=== PATIENT | male | born 1980 | race Caucasian/White ===

== ENCOUNTER 2016-05-19 10:09 | Day surgery (SDC) | payer MEDICAID ==
[2011-08-20 11:55] VITALS: BMI 32.5
[2016-05-19] MEDS ORDERED: HYDROCODONE-APA1 TAB PO (11:07)
[2016-05-19] MEDS ORDERED: KLONOPIN0.5 MG PO (11:08)
[2016-05-19] MEDS ORDERED: CYCLOBENZAPRINE10 MG PO (11:15)
[2016-05-19] MEDS ORDERED: ABILIFY10 MG PO (11:16)
[2016-05-19] MEDS ORDERED: NUVIGIL250 MG PO (11:16)
--- NOTE | 2016-05-19 11:32 | NUR ---
1125- DR. SELF SPOKE WITH PATIENT AND FAMILY ABOUT PERSUING RADIO ABLATION DUE TO THE FACT THAT THE PT HAS BEEN EXPERIENCING PAIN FOR REPORTLY 5 YEARS. PT INFORMATION COLLECTED FROM PATIENT FOR DR. SELF ANESTHESIA CONSULT COMPLETED.
--- NOTE | 2016-05-21 13:40 | CN ---
PATIENT NAME:DAVID ETIENNE MEDICAL RECORD: [id number] : 84 [facility] AD[facility] DATE: ACCOUNT: [id number] CONSULTING PHYSICIAN: BOBBY SELF MD REFERRING PHYSICIAN: TWIN KUNZ MD DATE OF CONSULTATION: 05/19/2016 Mr. Etienne was referred to the pain service by Dr. Twin Kunz for the patient's longstanding right groin pain. The patient apparently had a right inguinal hernia repair with mesh approximately 5 years ago. Since that time, the patient has developed right lower quadrant pain, which seems to be superficial along the ilioinguinal nerve area. The patient presents today for discussion of options on resolution of the patient's chronic pain. The patient is a male, 36 years of age, currently on a few medications, on Abilify, Flexeril, Klonopin, hydrocodone for his chronic pain condition. The patient relates that it can be incapacitating. The patient is requesting some type of resolution. The patient has been referred to [facility] in the past, was given IV medication and was not counseled at the pain service and was sent back to [facility]. The patient is requesting some type of alternative to oral medications for the chronic pain condition. I discussed at length the patient's condition. I felt that it was probably either scar tissue or entrapment of ilioinguinal nerve along that right inguinal area. I relayed to the patient extensively that we could do a diagnostic, but not therapeutic injection, we could do Marcaine with steroids, but with the longstanding chronicity of injury, I felt that the patient would not have any resolution. I felt that it will be more diagnostic than actually therapeutic. The patient asked for other options, other options relayed to him was radiofrequency ablation. The patient equests local physician who perhaps did that, I relayed that would be referral to Dr. Seamus Don. I felt that for resolution and therapeutic results, radiofrequency ablation with Dr. Seamus Don was appropriate. We will refer the patient onto Dr. Seamus Don for radiofrequency ablation of the ilioinguinal nerve on the right side for chronic ilioinguinal nerve entrapment. TRANSINT:[id number] Voice Confirmation ID: [id number] DOCUMENT ID: [id number] BOBBY SELF MD at 1340 CC: QUIN DON MD [id number] DICTATION DATE: 05/20/16 0831 DIRECTOR OF SPORTS PERFORMANCE: 05/20/16 1120 [facility] [place] 05/19/16 [place] [id number] [place] [address]
== END 2016-05-19 11:27 | disposition home or self-care (01) ==
LOC: D.OPS 10:09
DX: R10.31 Right lower quadrant pain (principal)

== ENCOUNTER → 2019-01-27 09:44 | Outpatient (CLI) | payer MEDICAID ==
[2011-08-20 11:55] VITALS: BMI 32.5
[~2019-01-27 09:44] MED LIST: ABILIFY10 MG PO; CYCLOBENZAPRINE10 MG PO; HYDROCODONE-APA1 TAB PO; KLONOPIN0.5 MG PO; NUVIGIL250 MG PO
== END | disposition home or self-care (01) ==
LOC: D.MRI 09:44
PROVIDERS: ATTEND Pain Medicine Interventional Pain Medicine
DX: G57.91 Unspecified mononeuropathy of right lower limb (principal); G57.81 Other specified mononeuropathies of right lower limb; M47.897 Other spondylosis, lumbosacral region; M54.5 Low back pain; M54.17 Radiculopathy, lumbosacral region; R10.30 Lower abdominal pain, unspecified; G89.4 Chronic pain syndrome; Z79.899 Other long term (current) drug therapy; Z79.891 Long term (current) use of opiate analgesic

== ENCOUNTER 2019-09-02 19:50 | Emergency (ER) | payer MEDICAID ==
[~2019-09-02] VITALS: Ht 190.5 cm; Wt 128.2 kg
[2019-09-02 19:57] VITALS: Ht 190.5 cm; Wt 128.2 kg
[2019-09-02] MEDS ORDERED: NEURONTIN800 MG PO (19:59)
[2019-09-02] MEDS ORDERED: ADIPEX-P37.5 M1 PO (19:59)
[2019-09-02 20:07] LABS: BASOPHILS 0.2 % (0-2); EOSINOPHILS 0.5 % (0-7); HEMATOCRIT 43.5 % (42.0-54.0); HEMOGLOBIN 14.4 g/dL (13.5-17.5); IMMATURE GRANULOCYTES 0.4 % (0-5); LYMPHOCYTES 13.7 % (15-50); MCH 32.8 pg (26.0-34.0); MCHC 33.1 g/dL (31.0-37.0); MCV 99.1 fL (80.0-100.0); MEAN PLATELET VOLUME 10.2 fL (7.4-10.4); MONOCYTES 5.6 % (2-11); NEUTROPHILS 79.6 % (40-80); PLATELET COUNT 228 10x3/uL (130-400); RBC 4.39 10x6/uL (4.20-6.10); RDW 12.9 % (11.5-14.5); WBC 10.2 10x3/uL (4.8-10.8)
[2019-09-02 20:14] LABS: APTT 30.5 SECONDS (22.8-39.4); CALC OSMOLALITY 283 mosm/kg (275-300); CALCIUM 10.4 mg/dL (8.5-10.1); CARBON DIOXIDE 28.6 mmol/L (21.0-32.0); CHLORIDE - SERUM 102 mmol/L (98-107); CREATININE - SERUM 1.8 mg/dL (0.6-1.3); GLUCOSE 143 mg/dL (74-106); INR 0.96 (0.85-1.17); POTASSIUM - SERUM 3.9 mmol/L (3.5-5.1); PROTIME 12.7 SECONDS (11.6-15.0); SODIUM 139 mmol/L (136-145); UREA NITROGEN 23 mg/dL (7-18); eGFR NON AFRICAN AMERICAN 45 mL/min (90-120)
[2019-09-02 20:30] LABS: ALBUMIN 4.7 g/dL (3.4-5.0); ALKALINE PHOSPHATASE 65 U/L (30-120); ALT (SGPT) 36 U/L (10-68); AMYLASE - SERUM 42 U/L (25-115); BILIRUBIN - TOTAL 0.32 mg/dL (0.2-1.3); CKMB 2.6 U/L (0.0-3.6); CREATINE KINASE 275 UL (21-232); LIPASE 54 U/L (73-393); MAGNESIUM - SERUM 2.4 mg/dL (1.8-2.4); PROTEIN - SERUM 8.2 g/dL (6.4-8.2)
[2019-09-02 20:31] LABS: TROPONIN-I < 0.017 ng/mL (0.000-0.060)
[2019-09-02 21:22] LABS: UDS - BARB NEGATIVE QUAL (NEGATIVE); UDS - BENZO NEGATIVE QUAL (NEGATIVE); UDS - COCAINE NEGATIVE QUAL (NEGATIVE); UDS - OPIATE POSITIVE QUAL (NEGATIVE); UDS - PCP NEGATIVE QUAL (NEGATIVE); UDS - THC NEGATIVE QUAL (NEGATIVE)
[2019-09-02 21:31] LABS: UDS - AMPHET POSITIVE QUAL (NEGATIVE)
[2019-09-02 22:18] VITALS: BP 155/89
--- NOTE | 2019-09-02 23:30 | NUR ---
DR GUTIERREZ NOTIFIED AND REVIEWED PT;s BEHAVIOR AND ASSESSMENT RESULTS. PT IS A LOW RISK PER DR GUTIERREZ. DR GUTIERREZ STATED TO GIVE RESOURCES TO PT AT TIME OF DISCHARGE. NO FURTHER ORDERS AT THIS TIME. RESOURCES REVIEWED WITH PT AND HE VERBALIZED UNDERSTANDING.
== END 2019-09-02 22:18 | disposition home or self-care (01) ==
LOC: D.ER 19:50
PROVIDERS: Surgery
DX: H53.2 Diplopia (principal); R55 Syncope and collapse; R10.9 Unspecified abdominal pain

== ENCOUNTER 2019-12-19 06:51 | Day surgery (SDC) | payer MEDICAID ==
[~2019-12-19] VITALS: Ht 190.5 cm; Wt 126.4 kg
[~2019-12-19 06:51] MED LIST changes: +ADIPEX-P37.5 M1 PO; +BACLOFEN20 M1 PO; +CYMBALTA60 MG PO; -HYDROCODONE-APA1 TAB PO; +IBUPROFEN800 MG PO; +NEURONTIN800 MG PO; +NORCO 7.5-3251 EACH PO; +VOLTAREN75 MG PO
[2019-12-19 07:05] LABS: BASOPHILS 0.3 % (0-2); EOSINOPHILS 1.5 % (0-7); HEMATOCRIT 43.1 % (42.0-54.0); HEMOGLOBIN 14.2 g/dL (13.5-17.5); IMMATURE GRANULOCYTES 0.3 % (0-5); MCH 32.9 pg (26.0-34.0); MCHC 32.9 g/dL (31.0-37.0); MEAN PLATELET VOLUME 9.9 fL (7.4-10.4); MONOCYTES 6.4 % (2-11); NEUTROPHILS 62.5 % (40-80); PLATELET COUNT 269 10x3/uL (130-400); RBC 4.31 10x6/uL (4.20-6.10); RDW 13.8 % (11.5-14.5); WBC 6.9 10x3/uL (4.8-10.8)
[2019-12-19 07:12] LABS: CALC OSMOLALITY 283 mosm/kg (275-300); CALCIUM 9.4 mg/dL (8.5-10.1); CARBON DIOXIDE 27.7 mmol/L (21.0-32.0); CHLORIDE - SERUM 108 mmol/L (98-107); GLUCOSE 107 mg/dL (74-106); POTASSIUM - SERUM 4.2 mmol/L (3.5-5.1); SODIUM 142 mmol/L (136-145); UREA NITROGEN 16 mg/dL (7-18); eGFR NON AFRICAN AMERICAN 89 mL/min (90-120)
[2019-12-19 08:15] VITALS: BP 121/79; BMI 33.9
--- NOTE | 2019-12-19 08:48 | NUR ---
DR. GUTIERREZ NOTIFIED AND REVIEWED PT'S BEHAVIOR AND ASSESSMENT RESULTS. PT IS A LOW RISK PER DR. GUTIERREZ. DR. GUTIERREZ STATED TO GIVE RESOURCES TO PT AT TIME OF DISCHARGE. NO FURTHER ORDERS AT THIS TIME. RESOURCES REVIEWED WITH PT AND HE VERBALIZED UNDERSTANDING. PT DENIES SI. PT REPORTS " I DID ATTEMPT SUICIDE TWO YEARS AGO TODAY, MY SIGNIFICANT OTHER AFTER SURGERY." I AM CURRENTLY TAKING ANXIETY AND DEPRESSION MEDICATIONS. PT CONTINUES TO DENY SI AT THIS TIME.
--- NOTE | 2019-12-19 11:05 | NUR ---
PATIENT STATES 10/10 PAIN. GRIMACING. MOANING. STATING HE IS IN EXCRUCIATING PAIN. EDUCATED ON DILAUDED AND SIDE EFFECTS.
--- NOTE | 2019-12-19 11:19 | NUR ---
PATIENT ASLEEP. WOKE UP TO ASK PAIN LEVEL. STATED IM AT 10! IM HURTING SO BAD. EDUCATED THAT I JUST GAVE 2 MG OF DILAUDED AND CAUSE DROWSINESS
--- NOTE | 2019-12-19 11:29 | NUR ---
PATIENT SLEEPING BUT WHEN ASKED WHAT PAIN IS FROM 1-10. STATES 10. START TO GRIMANCE AND MOAN ONCE WOKEN UP BUT STOPS AFTER HE GOES BACK TO SLEEP
[2019-12-19 12:01] VITALS: BP 142/82; Ht 190.5 cm; Wt 126.4 kg
[2019-12-19 12:19] VITALS: BP 142/82
--- NOTE | 2019-12-19 12:22 | NUR ---
RECEIVEDPT FROM OR VIA BED. NO ACUTE DISTRESS NOTED. EYES CLOSED, ABLE TO ANSWER QUESTIONS APPROPRIATELY. BROTHER AT BEDSIDE. RATES PAIN 10/10 IN GROIN AREA. GAVE PRN NORCO 10MG. RESTING WITH EYES CLOSED. BED I LOWEST POSITTION, LOCKED, SIDE RAILS UP X3. CALL LIGHT WITHIN REACH. NEEDS ANTICIPATED AND MET. WILL CONTINUE TO MONITOR
[2019-12-19 15:00] VITALS: BP 126/72
[2019-12-19 20:00] VITALS: BP 122/74
[2019-12-20] VITALS: BP 139/80
--- NOTE | 2019-12-20 02:20 | NUR ---
I have reviewed this patient and I concur with the Shift Assessment completed by the Licensed Practical Nurse today this shift.
[2019-12-20 04:00] VITALS: BP 145/79
--- NOTE | 2019-12-20 07:15 | NUR ---
RECEIVED BEDSIDE REPORT. PT LAYING IN BED, A&O X4. PIV TO RIGHT HAND, PATENT AND INFUSING, NO REDNESS OR SWELLING. DRSG TO RIGHT GROIN, C/D/I. PT ABLE TO AMBULATE WITH MIN ASSIST. EDUCATED PT ON CL AND NEEDS, VERBALIZED UNDERSTANDING. BED LOW, RAILS X2. CL IN REACH, WILL CONTINUE TO MONITOR.
[2019-12-20 08:54] VITALS: BP 124/88
[2019-12-20] MEDS ORDERED: PERCOCET 10-321 EAC1 PO (09:00)
--- NOTE | 2019-12-20 11:24 | NUR ---
EDUCATED PT ON DISCHARGE INSTRUCTIONS, MEDICATIONS, ACTIVITY, VERBALIZED UNDERSTANDING AND SIGNED PAPERWORK. REMOVED PIV FROM RIGHT HAND, CATHETER INTACT, NO REDNESS OR SWELLING. ESCORTED PT TO FRONT ENTRANCE VIA WHEELCHAIR.
--- NOTE | 2019-12-21 13:46 | OP ---
PATIENT NAME: DAVID ETIENNE MEDICAL RECORD: [id number] :84 [facility] ADMISSION DATE: SURGEON: TWIN KUNZ MD DATE OF OPERATION: 12/19/2019 PREOPERATIVE DIAGNOSES: 1. Chronic right groin pain, status post right inguinal hernia repair with mesh. 2. Tobacco dependence syndrome. POSTOPERATIVE DIAGNOSES: 1. Chronic right groin pain, status post right inguinal hernia repair with mesh. 2. Tobacco dependence syndrome. PROCEDURES: 1. Extraction of right inguinal PHS mesh. 2. Primary inguinal hernia repair. SURGEON: Twin Kunz MD REPORT OF PROCEDURE: The patient's right groin was prepped and draped in sterile fashion. An oblique incision was made above the inguinal ligament. Electrocautery was used to dissect through the subcutaneous tissue down to the external oblique fascia. This fascia was opened up to the external ring using electrocautery. We immediately encountered the previously placed PHS mesh. There appeared to be no fluid collections and no signs of infection. The mesh itself appeared to be normal with no overt chronic inflammatory changes. I did not see any evidence of any abnormal nerve tissue present on the initial inspection. We began extraction of the mesh. Using electrocautery, we were able to elevate the anterior aspect of the PHS mesh off of the inguinal floor. We were able to extract all of this mesh in pieces and sent this off for permanent specimen. We then took out the column from the PHS mesh, being careful not to injure any of the underlying structures. We then began a tedious dissection in the preperitoneal space of Retzius, taking off the under surface mesh using blunt dissection and electrocautery. We were eventually able to get out what appeared to be all of the mesh in pieces. As I felt around in the preperitoneal space, I did not feel any evidence of any further mesh tissue. There was a small venous bleeder present. I could not tell if it was a side bite of a larger vessel, so I went ahead and just oversewed this with a [id number] 7-0 Prolene. This discontinued the bleeding. We then inspected the area thoroughly and saw no evidence of any further bleeding. We irrigated out the wound with normal saline. The inguinal floor was opened up consistent with a hernia. We elected not to place another mesh because of the patient's previous symptoms. We began a primary closure of the hernia first by making a relaxing cut through the anterior fascial layer and eventually pulling the shelving edge to the inguinal ligament with multiple interrupted 0 Nurolons. There was good approximation of the tissue. We were able to run this all the way past the internal opening and a new internal opening was made with this fascial layer. We then irrigated out the wound one last time and assured there was no sign of any active bleeding, which there was none. While we were performing the dissection for this primary repair, I did run across a nerve which was in the tissue underlying where the mesh was present. This nerve did not appear to be adherent to the mesh in any way as it looked completely normal and it was actually under the muscular tissue, but it did dip down through the OPERATIVE REPORT [id number] DAVID ETIENNE underlying tissue, so this may have been the actual source of the patient's pain as it passed through the undersurface of the mesh. I went ahead and high ligated this nerve. We then closed the external oblique using running 2-0 Vicryl, Chad's was closed with interrupted 3-0 Vicryl, and the skin was closed with running subcutaneous 5-0 Monocryl. A 10 mL of 0.25% Marcaine with epinephrine was infused into the surrounding tissues and the wound was dressed with a pressure dressing. COMPLICATIONS: None. CONDITION: Stable. ANESTHESIA: General endotracheal and local. BLOOD LOSS: 50 mL. NTS:[id number] Voice Confirmation ID: [id number] DOCUMENT ID: [id number] TWIN KUNZ MD at 1346 CC: CRISTIANO PAULINO [id number] DICTATION DATE: 12/19/199 LOGISTICS PROGRAM MANAGER: 12/19/192028 [facility] 12/20/19 [facility] [address] [place] [address]
== END 2019-12-20 11:33 | disposition home or self-care (01) ==
LOC: D.OPS 06:51 → D.MS 11:57 → D.OPS 12-20 11:33
PROVIDERS: Anesthesiology; ATTEND Surgery
DX: G89.29 Other chronic pain (principal); S31.103A Unspecified open wound of abdominal wall, right lower quadrant without penetration into peritoneal cavity, initial encounter; R10.31 Right lower quadrant pain; Z72.0 Tobacco use